=== PATIENT | female | born 1970 | race Caucasian/White ===

== ENCOUNTER 2016-11-05 14:05 | Emergency (ER) | payer MEDICARE, OTHER ==
[2016-11-05 14:17] VITALS: BP 126/94
--- NOTE | 2016-11-05 14:37 | EDM.PDOC ---
ED HPI GENERAL MEDICAL PROBLEM - General Chief Complaint: General Stated Complaint: BODY ACHES Time Seen by Provider: 11/05/16 14:20 Source of Information: Reports: Patient History Limitations: Reports: No Limitations - History of Present Illness INITIAL COMMENTS - FREE TEXT/NARRATIVE: 46-year-old female on chronic disability because of chronic back pain is in with generalized muscle aches in her arms and legs for the past 3 days. She is able to ambulate, no fevers or chills, no shortness of breath, no nausea or vomiting, no rashes or joint swelling. Just generalized pain. She was visiting a friend in the area that brought her in to be seen, the friend is also being seen for neck pain. Onset: Gradual (Over the past several days) Location: Reports: Other (Mostly the extremities, arms and legs) Associated Symptoms: Reports: No Other Symptoms Generalized Pain Score (Numeric/FACES): 6 - Related Data Allergies Allergy/AdvReac Type Severity Reaction Status Date / Time Sulfa (Sulfonamide Allergy Unknown Hives Verified 10/15/15 16:16 Antibiotics) Home Meds: Home Meds Gabapentin [Gabapentin] 900 mg PO TID 11/22/12 [History] Ibuprofen [Ibuprofen] 800 mg PO TID PRN 11/22/12 [History] glipiZIDE [Glipizide ER] 2.5 mg PO DAILY 11/22/12 [History] traZODone 150 mg PO BEDTIME 11/22/12 [History] Levothyroxine 25 mcg PO DAILY 10/15/15 [History] Omeprazole 20 mg PO DAILY 10/15/15 [History] Vortioxetine Hydrobromide [Trintellix] 10 mg PO DAILY 10/15/15 [History] Past Medical History Cardiovascular History: Reports: Arrhythmia Gastrointestinal History: Reports: Bowel Obstruction, [employer] History: Reports: Musculoskeletal History: Reports: Back Pain, Chronic, Neck Pain, Chronic, Other (See Below) Other Musculoskeletal History: bulging disc, sciatic pain Neurological History: Reports: Migraines Psychiatric History: Reports: Anxiety, Depression, PTSD Endocrine/Metabolic History: Reports: Diabetes, Type II, Other (See Below) Other Endocrine/Metabolic History: thyroid disease Oncologic (Cancer) History: Reports: Other (See Below) Other Oncologic History: precancerous uterine cells - Infectious Disease History Infectious Disease History: Reports: Chicken Pox - Past Surgical History GI Surgical History: Reports: Cholecystectomy Musculoskeletal Surgical History: Reports: Other (See Below) Other Musculoskeletal Surgeries/Procedures:: ruptured disk l3-l4. history of back fusion. Social & Family History - Tobacco Use Smoking Status *Q: Light Tobacco Smoker Years of Tobacco use: 10 Packs/Tins Daily: 0.5 - Caffeine Use Caffeine Use: Reports: Coffee - Alcohol Use Days Per Week of Alcohol Use: 0 - Recreational Drug Use Recreational Drug Use: No ED ROS GENERAL - Review of Systems Review Of Systems: See Below Constitutional: Reports: Other (Has been experiencing some occasional "sweats".) . Denies: Fever, Chills, Malaise HEENT: Reports: No Symptoms Respiratory: Denies: Shortness of Breath Cardiovascular: Denies: Chest Pain GI/Abdominal: Denies: Abdominal Pain, Nausea, Vomiting : Reports: No Symptoms Musculoskeletal: Reports: Back Pain (Chronic and unchanged) Skin: Denies: Bruising, Rash Neurological: Denies: Paresthesia Psychiatric: Reports: No Symptoms ED EXAM, GENERAL - Physical Exam Exam: See Below Exam Limited By: No Limitations General Appearance: Alert, No Apparent Distress Eye Exam: Bilateral Eye: Normal Inspection Neck: Other (Reacts with some tenderness to palpation along the paracervical muscles parathoracic and paralumbar muscles.) Respiratory/Chest: No Respiratory Distress, Lungs Clear Cardiovascular: Regular Rate, Rhythm, Tachycardia Extremities: Normal Inspection (Extremities are visually normal but she reacts with tenderness to palpation of the proximal muscles, there is no rash or bruising seen) Course - Vital Signs Last Recorded V/S: Last Vital Signs Temp 97.3 F 11/05/16 14:18 Pulse 117 H 11/05/16 14:18 Resp 18 11/05/16 14:18 BP 126/94 H 11/05/16 14:18 Pulse Ox 96 11/05/16 14:18 - Orders/Labs/Meds Orders: Active Orders 24 hr Category Date Time Status EHRLICHIA CHAFFEENSIS, IGG&IGM [REF] Stat Lab 11/05/16 15:33 Received LYME AB SCREEN RFLX [REF] Stat Lab 11/05/16 15:33 Received Labs: Laboratory Tests 11/05/16 11/05/16 11/05/16 Range/Units 14:39 14:39 14:39 WBC 13.5 H (4.5-11.0) K/uL RBC 5.15 (3.30-5.50) M/uL Hgb 15.7 H (12.0-15.0) g/dL Hct 46.2 (36.0-48.0) % MCV 90 (80-98) fL MCH 31 (27-31) pg MCHC 34 (32-36) % Plt Count 279 (150-400) K/uL Neut % (Auto) 87 H (36-66) % Lymph % (Auto) 10 L (24-44) % [place] % (Auto) 3 (2-6) % Eos % (Auto) 0 L (2-4) % Baso % (Auto) 0 (0-1) % Sodium 142 (140-148) mmol/L Potassium 4.1 (3.6-5.2) mmol/L Chloride 103 (100-108) mmol/L Carbon Dioxide 28 (21-32) mmol/L Anion Gap 11.1 (5.0-14.0) mmol/L BUN 10 (7-18) mg/dL Creatinine 0.7 (0.6-1.0) mg/dL Est Cr Clr Drug Dosing 103.46 mL/min Estimated GFR (MDRD) > 60 (>60) Glucose 136 H (74-106) mg/dL Calcium 8.8 (8.5-10.1) mg/dL Total Bilirubin 0.8 (0.2-1.0) mg/dL AST 20 (15-37) U/L ALT 31 (12-78) U/L Alkaline Phosphatase 104 (46-116) U/L Creatine Kinase 123 (26-192) U/L C-Reactive Protein 0.60 H (0.0-0.3) mg/dL Total Protein 8.1 (6.4-8.2) g/dL Albumin 3.9 (3.4-5.0) g/dL Globulin 4.2 H (2.3-3.5) g/dL Albumin/Globulin Ratio 0.9 L (1.2-2.2) - Re-Assessments/Exams Free Text/Narrative Re-Assessment/Exam: 11/05/16 14:38 A CBC, CMP, CRP and CK were drawn. 11/05/16 15:25 Labs were generally reassuring. Her white count was minimally elevated at 14,000 , CRP was minimally elevated at 0.6, CK was normal electrolytes are normal hemoglobin is normal. I asked the patient to give this a few more days and if she worsens she can return and let us know, she asked for something for pain but has been given 130 hydrocodone or tramadol by other physicians already this month, I told her anti-inflammatory such as naproxen or ibuprofen would actually be better for the type of pain she is having. She'll recheck in 2-3 days if not improving. Departure - Departure Time of Disposition: 15:38 Disposition: Home, Self-Care 01 Condition: Good Clinical Impression: Muscular pain Chronic back pain Qualifiers: Back pain location: low back pain Back pain laterality: bilateral Sciatica presence: without sciatica Qualified Code(s): M54.5 - Low back pain - Discharge Information Instructions: Chronic Back Pain Referrals: PCP,None [Primary Care Provider] - Forms: ED Department Discharge Care Plan Goals: Try to increase activity as tolerated and use ibuprofen or naproxen for discomfort. Recheck in 2-3 days if not improving satisfactorily, or return sooner if fever spikes, shortness of breath or joint swelling occurs. - My Orders Last 24 Hours: My Active Orders 11/05/16 15:33 EHRLICHIA CHAFFEENSIS, IGG&IGM [REF] Stat LYME AB SCREEN RFLX [REF] Stat - Assessment/Plan Last 24 Hours: My Active Orders 11/05/16 15:33 EHRLICHIA CHAFFEENSIS, IGG&IGM [REF] Stat LYME AB SCREEN RFLX [REF] Stat
== END 2016-11-05 15:38 | disposition home or self-care (01) ==
LOC: JP.ED 14:05
DX: M54.5 Low back pain (principal); M79.1 Myalgia; K21.9 Gastro-esophageal reflux disease without esophagitis; E11.9 Type 2 diabetes mellitus without complications; F41.9 Anxiety disorder, unspecified; F32.9 Major depressive disorder, single episode, unspecified; F17.210 Nicotine dependence, cigarettes, uncomplicated; Z90.49 Acquired absence of other specified parts of digestive tract; Z88.2 Allergy status to sulfonamides; Z79.899 Other long term (current) drug therapy; Z79.84 Long term (current) use of oral hypoglycemic drugs
CPT/HCPCS: 36415; 80053; 82550; 85025; 86140; 86618; 86666; 86666-59; 99283; 99284